=== PATIENT | male | born 1980 | race Caucasian/White ===

== ENCOUNTER 2024-05-15 18:18 | Inpatient (IN) | payer OTHER ==
[2024-05-15 20:00] LABS: BASO % 0.5 % (0-2.0); EOS % 6.6 % (0-4.5); HEMATOCRIT 44.9 % (35.4-49); HEMOGLOBIN 15.7 GM/dL (11.7-16.9); LYMPH % 24.5 % (8-40); MCH 31.2 pg (25.7-33.7); MEAN CELL VOLUME 89.1 fl (80-96); MEAN PLT VOLUME 11.8 fl (7.5-11.1); MONO % 15.2 % (3.8-10.2); NEUT % 53.2 % (42.8-82.8); PLATELET COUNT 90 10^3/uL (134-434); RBC 5.03 M/mm3 (4.00-5.60); RDW 13.3 % (11.9-15.9); URINE APPEARANCE CLEAR; URINE BILIRUBIN NEGATIVE (NEGATIVE); URINE COLOR YELLOW; URINE GLUCOSE (UA) TRACE (NEGATIVE); URINE KETONE NEGATIVE (NEGATIVE); URINE LEUK ESTERASE NEGATIVE (NEGATIVE); URINE NITRITE NEGATIVE (NEGATIVE); URINE PROTEIN NEGATIVE (NEGATIVE); URINE UROBILINOGEN 0.2 mg/dL (0.2-1.0); WHITE BLOOD COUNT 10.2 K/mm3 (4.0-10.0)
[2024-05-15 20:07] LABS: POTASSIUM 3.4 mmol/L (3.5-5.1)
[2024-05-15 20:09] LABS: CALCIUM 8.7 mg/dL (8.5-10.1)
[2024-05-15 20:10] LABS: ALBUMIN 3.8 g/dl (3.4-5.0); BLOOD UREA NITROGEN 8.4 mg/dL (7-18); LACTIC ACID 2.1 mmol/L (0.4-2.0)
[2024-05-15 20:13] LABS: CREATININE 0.6 mg/dL (0.55-1.3)
[2024-05-15 20:14] LABS: BILIRUBIN,TOTAL 0.3 mg/dL (0.2-1); TOT PROT 7.8 g/dl (6.4-8.2)
[2024-05-15] MEDS: LACTATED RINGERS SOLUTION 1000 ML INFUS.BAG IV ONE (21:41)
[2024-05-15 23:08] LABS: LACTIC ACID 2.7 mmol/L (0.4-2.0)
[2024-05-16 00:42] LABS: LACTIC ACID 2.7 mmol/L (0.4-2.0)
[2024-05-16] MEDS ORDERED: CEFTRIAXONE 1 GM/50 ML BAG ONE (01:09)
[2024-05-16] MEDS ORDERED: DOXYCYCLINE HYCLATE 100 MG CAPSULE PO ONE (01:09)
[2024-05-16] MEDS: SODIUM CHLORIDE 0.9% 500 ML INFUS.BAG IV ONE (01:11)
[2024-05-16] MEDS: DOXYCYCLINE HYCLATE 100 MG CAPSULE PO ONE (01:11)
[2024-05-16] MEDS: LACTATED RINGERS SOLUTION 1000 ML INFUS.BAG IV ONE (01:11)
[2024-05-16] MEDS: SODIUM CHLORIDE 1,000 ML IV SCH (02:51)
[2024-05-16] MEDS: CEFTRIAXONE 500 MG in DEXTROSE 5%-WATER - 50 ML IVPB ONE (04:10)
[2024-05-16 07:00] LABS: BASO % 0.5 % (0-2.0); EOS % 8.2 % (0-4.5); HEMATOCRIT 43.2 % (35.4-49); HEMOGLOBIN 14.7 GM/dL (11.7-16.9); LYMPH % 20.3 % (8-40); MCH 31.1 pg (25.7-33.7); MCHC 34.1 g/dl (32.0-35.9); MEAN CELL VOLUME 91.2 fl (80-96); MEAN PLT VOLUME 12.9 fl (7.5-11.1); RBC 4.74 M/mm3 (4.00-5.60); RDW 13.2 % (11.9-15.9)
[2024-05-16 07:13] LABS: BLOOD UREA NITROGEN 9.2 mg/dL (7-18)
[2024-05-16 07:16] LABS: CREATININE 0.6 mg/dL (0.55-1.3)
[2024-05-16 07:35] LABS: LACTIC ACID 2.2 mmol/L (0.4-2.0)
[2024-05-16 09:46] LABS: ERYTHROCYTE SEDIMENTATION RATE 18 mm/hr (0-10)
[2024-05-16 09:47] LABS: PLATELET COUNT 90 10^3/uL (134-434)
[2024-05-16 09:50] LABS: HIV INTERPRETATION NEGATIVE (NEGATIVE)
[2024-05-16] MEDS ORDERED: ENOXAPARIN NA (PORCINE) 40 MG/0.4 ML DISP.SYRIN SQ SCH (10:00)
[2024-05-16 10:53] VITALS: BMI 27.2
[2024-05-17] MEDS ORDERED: LORazepam 1 MG TABLET PO PRN ×2 (08:11→19:51)
[2024-05-17] MEDS: SODIUM CHLORIDE 1,000 ML IV SCH (09:44)
[2024-05-17 10:21] LABS: BASO % 0.4 % (0-2.0); EOS % 7.8 % (0-4.5); HEMATOCRIT 43.9 % (35.4-49); HEMOGLOBIN 14.9 GM/dL (11.7-16.9); LYMPH % 24.7 % (8-40); MCH 30.9 pg (25.7-33.7); MCHC 33.9 g/dl (32.0-35.9); MEAN CELL VOLUME 91.1 fl (80-96); MEAN PLT VOLUME 13.4 fl (7.5-11.1); MONO % 10.2 % (3.8-10.2); NEUT % 56.9 % (42.8-82.8); PLATELET COUNT 99 10^3/uL (134-434); RBC 4.82 M/mm3 (4.00-5.60); RDW 13.3 % (11.9-15.9); WHITE BLOOD COUNT 7.3 K/mm3 (4.0-10.0)
[2024-05-17 10:40] LABS: POTASSIUM 3.6 mmol/L (3.5-5.1)
[2024-05-17 10:47] LABS: ALBUMIN 3.3 g/dl (3.4-5.0); BLOOD UREA NITROGEN 10.4 mg/dL (7-18)
[2024-05-17 10:49] LABS: BILIRUBIN,TOTAL 0.4 mg/dL (0.2-1); CALCIUM 8.6 mg/dL (8.5-10.1)
[2024-05-17 10:50] LABS: CREATININE 0.6 mg/dL (0.55-1.3); MAGNESIUM 2.3 mg/dL (1.8-2.4); PHOSPHOROUS 2.6 mg/dL (2.5-4.9)
[2024-05-17] MEDS ORDERED: LACTATED RINGERS SOLUTION 1,000 ML IV SCH (17:45)
[2024-05-17] MEDS ORDERED: ONDANSETRON 4 MG/2 ML VIAL IVPUSH PRN ×2 (17:45→19:51)
[2024-05-17] MEDS ORDERED: MIDAZOLAM HCL 2 MG/2 ML SINGLE DOSE VIAL ONE ×2 (17:48→18:40)
[2024-05-17] MEDS ORDERED: LIDOCAINE HCL 1%, 10 MG/ML (20ML VIAL) ONE (18:12)
[2024-05-17] MEDS: ceFAZolin SODIUM 1 GM VIAL IVPB ONE (18:12)
[2024-05-17] MEDS ORDERED: BUPIVACAINE HCL/PF 0.5% (5MG/ML) 10 ML VIAL ONE (18:12)
[2024-05-17] MEDS: BENZOYL PEROXIDE 5% 60 GM GEL..GRAM. TP SCH (18:28)
[2024-05-17] MEDS: ACETAMINOPHEN 500 MG TABLET (FP) PO SCH (19:59)
[2024-05-18 08:49] LABS: BASO % 0.6 % (0-2.0); EOS % 7.5 % (0-4.5); HEMATOCRIT 44.1 % (35.4-49); HEMOGLOBIN 14.9 GM/dL (11.7-16.9); LYMPH % 18.4 % (8-40); MCH 30.7 pg (25.7-33.7); MCHC 33.9 g/dl (32.0-35.9); MEAN CELL VOLUME 90.6 fl (80-96); MEAN PLT VOLUME 12.9 fl (7.5-11.1); MONO % 9.2 % (3.8-10.2); NEUT % 64.3 % (42.8-82.8); PLATELET COUNT 95 10^3/uL (134-434); RBC 4.86 M/mm3 (4.00-5.60); WHITE BLOOD COUNT 8.1 K/mm3 (4.0-10.0)
[2024-05-18 08:54] LABS: POTASSIUM 3.8 mmol/L (3.5-5.1)
[2024-05-18 09:02] LABS: ALBUMIN 3.3 g/dl (3.4-5.0); CALCIUM 8.8 mg/dL (8.5-10.1)
[2024-05-18 09:03] LABS: BLOOD UREA NITROGEN 10.4 mg/dL (7-18)
[2024-05-18 09:06] LABS: CREATININE 0.6 mg/dL (0.55-1.3)
[2024-05-18 09:07] LABS: BILIRUBIN,TOTAL 0.8 mg/dL (0.2-1); TOT PROT 6.9 g/dl (6.4-8.2)
[2024-05-18 09:38] LABS: PLATELET ESTIMATE PRESENT
[2024-05-18] MEDS ORDERED: BENZOYL PEROXIDE 5% 60 GM GEL..GRAM. TP SCH (10:00)
[2024-05-18] MEDS: IBUPROFEN 600 MG TABLET (FP) PO PRN (14:14)
[2024-05-19 07:27] LABS: POTASSIUM 3.8 mmol/L (3.5-5.1)
[2024-05-19 07:28] LABS: CALCIUM 8.8 mg/dL (8.5-10.1)
[2024-05-19 07:29] LABS: BLOOD UREA NITROGEN 13.8 mg/dL (7-18)
[2024-05-19 07:32] LABS: CREATININE 0.6 mg/dL (0.55-1.3)
[2024-05-19 08:10] LABS: BASO % 0.4 % (0-2.0); EOS % 6.9 % (0-4.5); HEMATOCRIT 45.8 % (35.4-49); HEMOGLOBIN 15.6 GM/dL (11.7-16.9); MCH 30.7 pg (25.7-33.7); MCHC 34.1 g/dl (32.0-35.9); MEAN CELL VOLUME 90.1 fl (80-96); MEAN PLT VOLUME 12.8 fl (7.5-11.1); MONO % 8.9 % (3.8-10.2); NEUT % 67.8 % (42.8-82.8); PLATELET COUNT 108 10^3/uL (134-434); RBC 5.08 M/mm3 (4.00-5.60); RDW 13.3 % (11.9-15.9); WHITE BLOOD COUNT 10.8 K/mm3 (4.0-10.0)
[2024-05-19] MEDS: MULTIVITAMINS (DAILY MVI) TABLET (FP) PO SCH (10:02)
[2024-05-19] MEDS: THIAMINE 100 MG TABLET PO SCH (10:02)
[2024-05-19] MEDS: FOLIC ACID 1 MG TABLET (FP) PO SCH (10:02)
[2024-05-19] MEDS: PIPERACILLIN/TAZOB 3.375 GM 3.375 GM in DEXTROSE 5%-WATER - 50 ML IVPB ONE (10:40)
[2024-05-20] MEDS ORDERED: LORazepam 0.5 MG TABLET PO PRN ×2
[2024-05-20 09:51] LABS: BASO % 0.5 % (0-2.0); HEMATOCRIT 45.4 % (35.4-49); HEMOGLOBIN 15.6 GM/dL (11.7-16.9); LYMPH % 20.2 % (8-40); MCHC 34.5 g/dl (32.0-35.9); MEAN PLT VOLUME 12.7 fl (7.5-11.1); MONO % 7.2 % (3.8-10.2); NEUT % 65.1 % (42.8-82.8); PLATELET COUNT 113 10^3/uL (134-434); RBC 5.04 M/mm3 (4.00-5.60); RDW 13.3 % (11.9-15.9); WHITE BLOOD COUNT 9.3 K/mm3 (4.0-10.0)
[2024-05-20 10:18] LABS: ALBUMIN 3.4 g/dl (3.4-5.0); BLOOD UREA NITROGEN 10.8 mg/dL (7-18); CALCIUM 9.1 mg/dL (8.5-10.1)
[2024-05-20 10:21] LABS: CREATININE 0.6 mg/dL (0.55-1.3)
[2024-05-20 10:23] LABS: BILIRUBIN,TOTAL 0.5 mg/dL (0.2-1); TOT PROT 7.4 g/dl (6.4-8.2)
[2024-05-23 07:10] VITALS: BP 111/67; PULSE 59; RESP 16; TEMP 97.9
== END 2024-05-23 12:12 | disposition home or self-care (01) | DRG 651 ==
LOC: JER 18:18 → JERBED 05-16 00:50 → J7W 05-16 09:04 → OBSVTOIN 05-16 09:43
PROVIDERS: ADMIT Internal Medicine
PROC: 07BJ0ZX Excision of Left Inguinal Lymphatic, Open Approach, Diagnostic (ICD-10-PCS; principal; 2024-05-17 18:30)
PROC: 0J970ZZ Drainage of Back Subcutaneous Tissue and Fascia, Open Approach (ICD-10-PCS; 2024-05-17 18:30)
DX: R59.1 Generalized enlarged lymph nodes (principal); D69.6 Thrombocytopenia, unspecified; L72.3 Sebaceous cyst; E87.20 Acidosis, unspecified; F10.90 Alcohol use, unspecified, uncomplicated
CPT/HCPCS: 36415; 71260-TC; 72193-TC; 74160-TC; 80048; 80053; 81003; 83036; 83605; 83735; 84100; 85025; 85651; 86140; 86480; 86632; 86682; 86705; 86707; 86708; 86780; 86850; 86900; 86901; 87070; 87086; 87205; 87340; 87350; 87389; 87491; 87517; 87522; 87591; 88305-TC; 88342-TC; 93005; 93010; 94760; 99285-25; G0378; Q9967